=== PATIENT | female | born 1995 ===

== ENCOUNTER 2018-02-21 10:35 | Day surgery (SDC) | payer BC, OTHER ==
[~2018-02-21 10:35] MED LIST: PROPOFOL INJ 200 MG/20 ML VIAL IV ONE
[2018-02-21 12:32] VITALS: BP 100/71
--- NOTE | 2018-02-21 12:52 | Operative Report ---
Operative Report DATE OF SURGERY: 02/21/18 Operative Report: The risks, benefits and alternatives of the procedure including risks of bleeding, perforation requiring surgery are explained to the patient in detail and informed consent is obtained. Patient was taken back to the endoscopy suite and placed in a left, lateral decubital position. Timeout was called. Propofol medication is administered. A rectal examination is done which did not reveal any masses, tears or fissures. An Olympus videoscope was inserted into the patient's rectum. The scope was then carefully advanced all the way to the cecum. The cecum was identified by the usual anatomical landmarks including the ileocecal valve as well as the appendiceal office. Photodocumentation was obtained. The scope was then sequentially pulled back via the various segments of the colon including the ascending colon, hepatic flexure, transverse colon, splenic flexure, descending colon and finally into the rectosigmoid portions of the colon. Retroflexion maneuvers performed. The risks benefits and alternatives of the procedure explained to the patient in detail and informed consent is obtained.A GIF Olympus video scope was inserted into the patient's mouth and hypopharynx, the esophagus is identified intubated and insufflated, the scope was then advanced through the esophagus stomach and duodenum, retroflexion maneuver is done, the esophagus stomach and first and second portions of the duodenum examined PREOPERATIVE DIAGNOSIS: Rectal bleeding, change in bowel habits. Gastroesophageal reflux disease, rule out celiac disease. POSTOPERATIVE DIAGNOSIS: Duodenitis status post biopsy rule out celiac disease. Gastritis status post biopsy rule out Helicobacter pylori. Right sidecolon Inflammation status post biopsy rule out lymphocytic, microscopic, collagenous colitis. Internal hemorrhoids OPERATION: Colonoscopy with biopsy. EGD with biopsy SURGEON: HORACIO MORAN ANESTHESIA: LMAC TISSUE REMOVED OR ALTERED: As noted above. COMPLICATIONS: None. ESTIMATED BLOOD LOSS: None. INTRAOPERATIVE FINDINGS: As noted above. PROCEDURE: Patient tolerated the procedure well. No immediate postprocedure complications are noted. Patient discharged in good condition. Discharge date 02/21/2018. Discharge diet: Regular. Discharge activity: Regular. 2-3 week follow-up to discuss findings. Patient is instructed call the office or proceed to the emergency room should there be any further problems or questions. We will wait on the pathology.
== END 2018-02-21 12:35 | disposition home or self-care (01) ==
LOC: END 10:35
PROVIDERS: ATTEND Internal Medicine Gastroenterology
DX: K62.5 Hemorrhage of anus and rectum (principal); K52.9 Noninfective gastroenteritis and colitis, unspecified; D64.9 Anemia, unspecified; K29.80 Duodenitis without bleeding; K29.50 Unspecified chronic gastritis without bleeding; K64.8 Other hemorrhoids; I10 Essential (primary) hypertension; Z88.5 Allergy status to narcotic agent; Z87.891 Personal history of nicotine dependence
CPT/HCPCS: 43239; 45380; 88305 ×2; J2704; 813